=== PATIENT | female | born 1965 | race Caucasian/White ===

== ENCOUNTER → 2020-10-11 13:20 | Outpatient (CLI) | payer OTHER, SELFPAY ==
--- NOTE | ~2020-10-11 | MM_ITS ---
EXAMINATION: MM screening [facility] BI w latisha HISTORY: Screening mammogram TECHNIQUE: Craniocaudal and mediolateral oblique 3-D tomosynthesis images were obtained and synthetic 2-D images were generated. CAD analysis was submitted and interpreted. COMPARISON: 11/25/2017, 08/01/2015 BREAST PARENCHYMAL COMPOSITION: The breasts are almost entirely fatty. FINDINGS: There is no evidence of suspicious mass, calcification, or architectural distortion to sugg est malignancy in either breast. There has been no suspicious interval change. IMPRESSION: 1. No mammographic evidence of malignancy. 2. Recommend routine screening mammography in one year. BI-RADS Category 1: Negative Reviewed, dictated and finalized at location A.
== END ==
PROVIDERS: PCP Family Medicine; Visit Provider Family Medicine
DX: Z12.31 Encounter for screening mammogram for malignant neoplasm of breast (principal)
CPT/HCPCS: 77063; 77067

== ENCOUNTER 2020-10-18 15:53 | Outpatient (CLI) | payer OTHER, SELFPAY | END 2020-10-18 15:54 | disposition home or self-care (01) | LOC: ANHCOVIDVC 15:54 | PROVIDERS: PCP Family Medicine | DX: Z23 Encounter for immunization (principal) | CPT/HCPCS: 0001A; 91300 ==

== ENCOUNTER 2020-11-08 15:59 | Outpatient (CLI) | payer OTHER, SELFPAY | END 2020-11-08 16:00 | PROVIDERS: PCP Family Medicine | DX: Z23 Encounter for immunization (principal) | CPT/HCPCS: 0002A; 91300 ==

== ENCOUNTER 2022-11-05 07:05 | Outpatient (CLI) | payer OTHER, SELFPAY ==
[2022-11-05 07:49] LABS: Alanine Aminotransferase 26 U/L (6-35); Albumin Level 4.7 g/dL (3.5-5.1); Alkaline Phosphatase 90 U/L (38-126); Anion Gap 4 mmol/L (8-16); Aspartate Amino Transferase 25 U/L (14-36); Bilirubin,Total 0.7 mg/dL (0.2-1.3); Blood Urea Nitrogen 22 mg/dL (7-17); Calcium 9.2 mg/dL (8.4-10.2); Carbon Dioxide 32 mmol/L (22-30); Chloride 104 mmol/L (98-107); Cholesterol 147 mg/dL (0-200); Estimated Glomerular Filt Rate > 60; Glucose 142 mg/dL (65-110); HDL Direct 62 mg/dL; Potassium 4.4 mmol/L (3.4-5.0); Sodium 140 mmol/L (137-145); Triglycerides 106 mg/dL (<150)
[2022-11-05 07:54] LABS: Creatinine Urine 84.3 mg/dL
[2022-11-05 07:59] LABS: MALB Creatinine Ratio 7.7 mg/g (0-30); Microalbumin Urine Random 6.5 mg/L (0-16.7)
[2022-11-05 08:03] LABS: LDL Cholesterol Direct 70 mg/dL
== END 2022-11-05 07:06 | disposition home or self-care (01) ==
PROVIDERS: PCP Family Medicine; Referring Provider Podiatrist Foot & Ankle Surgery; Visit Provider Family Medicine
DX: B35.1 Tinea unguium (principal); I10 Essential (primary) hypertension; E11.9 Type 2 diabetes mellitus without complications; E78.2 Mixed hyperlipidemia
CPT/HCPCS: 36415; 80053; 80061; 82043; 83036

== ENCOUNTER → 2022-12-12 13:17 | Outpatient (CLI) | payer OTHER, SELFPAY ==
--- NOTE | ~2022-12-12 | MM_ITS ---
EXAMINATION: MM screening [facility] BI w latisha HISTORY: Screening mammogram TECHNIQUE: Craniocaudal and mediolateral oblique 3-D tomosynthesis images were obtained and synthetic 2-D images were generated. CAD analysis was submitted and interpreted. COMPARISON: 10/11/2020, 11/25/2017, 08/01/2015 bilateral screening mammogram examinations BREAST PARENCHYMAL COMPOSITION: The breasts are almost entirely fatty. FINDINGS: There is no evidence of suspicious mass, calcification, or architectural distortion to sugg est malignancy in either breast. There has been no suspicious interval change. IMPRESSION: 1. No mammographic evidence of malignancy. 2. Recommend routine screening mammography in one year. BI-RADS Category 1: Negative Reviewed, dictated and finalized at location A.
== END ==
PROVIDERS: PCP Family Medicine; Visit Provider Family Medicine
DX: Z12.31 Encounter for screening mammogram for malignant neoplasm of breast (principal)
CPT/HCPCS: 77063; 77067

== ENCOUNTER 2023-01-22 00:11 | Day surgery (SDC) | payer OTHER, SELFPAY ==
[2023-01-09 13:21] VITALS: BMI 32.6
--- NOTE | 2023-01-21 16:35 | PM.HPGS ---
History of Present Illness History of Present Illness Consent: Risks, benefits, and alternatives have been discussed and questions answered. Patient agrees to proceed with procedure. Chief complaint: neoplasm screening Narrative: Lizbeth Valdovinos is a 57 year old female who is here for colon cancer screening years ago she had removal of a tubular adenoma. Review of Systems Review of Systems: All systems reviewed & are unremarkable except as noted in HPI and below PMFSH Past Medical History Medical History Abnormal perimenopausal bleeding Benign reactive hypertension Colonic polyp Diabetes mellitus Eczema of right upper extremity Essential (primary) hypertension Mixed hyperlipidemia Mixed hyperlipidemia Tubular adenoma of colon Type 2 diabetes mellitus with hyperglycemia Type 2 diabetes mellitus with hyperglycemia Type 2 diabetes mellitus without complications Family History Family History Mother Cerebrovascular accident Family history of diabetes mellitus in first degree relative Family history of coronary artery disease Father Family history of diabetes mellitus in first degree relative, Onset Age: 72 Patient's father is Social History Social History Social History: Smoking packs per day: 1.5 Smoking cigarettes per day: 30.0 Years smoked: 15 Smoking pack-years: 22.50 Smoking status: Former smoker Tobacco type: cigarettes Second hand tobacco smoke exposure: No Smoking end date: 07/14/00 Alcohol intake: never Substance use: never Substance use type: does not use Lack of Transportation: No Lack of Food: Never True Current Housing: I Have Housing Concerned About Future Housing: No Difficulty Paying Gas/Electric Bills: No Difficulty Paying for Meds: No Currently Unemployed: No Education: Decline to Answer Difficulty w/ Childcare or Family Care: No Living arrangements: with family Occupation/Education: occupation Gender identity (if verbalized by the patient): Female Sexual Orientation (if Verbalized by the Patient): Straight or Heterosexual Meds Home Medications and Allergies Home Medications Medication Instructions Recorded Confirmed Type canagliflozin 300 mg tablet 300 mg PO DAILY #90 tabs 08/07/21 01/09/23 Rx (Invokana) amlodipine 5 mg tablet See Rx Instructions .Route 05/20/22 01/09/23 Rx .COMPLEX #90 tabs atorvastatin 20 mg tablet 20 mg PO QHS #90 tabs 08/01/22 01/09/23 Rx metformin 1,000 mg tablet See Rx Instructions .Route 10/31/22 01/09/23 Rx .COMPLEX #180 tabs metoprolol tartrate 25 mg tablet See Rx Instructions .Route 10/31/22 01/09/23 Rx .COMPLEX #180 tabs irbesartan 300 1 tablet PO DAILY #30 tabs 11/05/22 01/09/23 Rx mg-hydrochlorothiazide 12.5 mg tablet levothyroxine 25 mcg tablet See Rx Instructions .Route 12/02/22 01/09/23 Rx .COMPLEX #90 tabs glimepiride 2 mg tablet See Rx Instructions .Route 12/23/22 01/09/23 Rx .COMPLEX #90 tabs Allergies Allergy/AdvReac Type Severity Reaction Status Date / Time empagliflozin Allergy Unknown rash Verified 01/22/23 06:42 Exam Resp: Auscultation: clear to auscultation bilaterally Cardio: Rate: regular rate Rhythm: regular rhythm GI: GI Palp: Yes Soft to palpation and No Tenderness to palpation present (GI) Assessment and Plan Assessment and plan (1) Colon cancer screening: Code(s): Z12.11 - Encounter for screening for malignant neoplasm of colon Status: Acute Assessment and Plan: Colonoscopy with possible biopsy or polypectomy or cautery or injection of substances.
[2023-01-22 06:44] VITALS: BP 148/72; PULSE 74; RESP 18; TEMP 36.2; O2SAT 99
[2023-01-22] MEDS: LACTATED RINGERS 1,000 ML 150 ML IV CONT (06:53)
[2023-01-22 07:40] LABS: Glucose Point of Care 157 mg/dl (65-105)
--- NOTE | 2023-01-22 07:45 | WPDANESEPPF ---
Anes - Initial Pre Proc Eval Procedure: Operation Date: 01/22/23 08:00 Proposed Procedures p Screening Colonoscopy - Evens Enamorado MD Date/Time: 01/22/23 07:45 Surgeon: Evens Enamorado MD Pre Op Diagnosis: neoplasm screening Patient Data Age: 57 Gender: F Height: 1.68 m Weight: 92.2 kg Last Vital Signs Temp 97.2 F L 01/22/23 06:44 Pulse 74 01/22/23 06:44 Resp 18 01/22/23 06:44 BP 148/72 H 01/22/23 06:44 Pulse Ox 99 01/22/23 06:44 O2 Del Method Room Air 01/22/23 06:44 Allergies Allergy/AdvReac Type Severity Reaction Status Date / Time empagliflozin Allergy Unknown rash Verified 01/22/23 06:42 Home Medications Medication Instructions Recorded Confirmed Type canagliflozin 300 mg tablet 300 mg PO DAILY #90 tabs 08/07/21 01/09/23 Rx (Invokana) amlodipine 5 mg tablet See Rx Instructions .Route 05/20/22 01/09/23 Rx .COMPLEX #90 tabs atorvastatin 20 mg tablet 20 mg PO QHS #90 tabs 08/01/22 01/09/23 Rx metformin 1,000 mg tablet See Rx Instructions .Route 10/31/22 01/09/23 Rx .COMPLEX #180 tabs metoprolol tartrate 25 mg tablet See Rx Instructions .Route 10/31/22 01/09/23 Rx .COMPLEX #180 tabs irbesartan 300 1 tablet PO DAILY #30 tabs 11/05/22 01/09/23 Rx mg-hydrochlorothiazide 12.5 mg tablet levothyroxine 25 mcg tablet See Rx Instructions .Route 12/02/22 01/09/23 Rx .COMPLEX #90 tabs glimepiride 2 mg tablet See Rx Instructions .Route 12/23/22 01/09/23 Rx .COMPLEX #90 tabs Laboratory Tests 01/22/23 06:55 POC Capillary Glucose 157 H mg/dl (65-105) Patient hx anesthesia problems: none Family hx anesthesia problems: none Results Review: All pre-operative results and documents have been reviewed as part of the pre-operative evaluation. [facility] Past Medical History Medical History Abnormal perimenopausal bleeding Benign reactive hypertension Colonic polyp Diabetes mellitus Eczema of right upper extremity Essential (primary) hypertension Mixed hyperlipidemia Mixed hyperlipidemia Tubular adenoma of colon Type 2 diabetes mellitus with hyperglycemia Type 2 diabetes mellitus with hyperglycemia Type 2 diabetes mellitus without complications Family History Family History Mother Cerebrovascular accident Family history of diabetes mellitus in first degree relative Family history of coronary artery disease Father Family history of diabetes mellitus in first degree relative, Onset Age: 72 Patient's father is Social History Social History Social History: Smoking packs per day: 1.5 Smoking cigarettes per day: 30.0 Years smoked: 15 Smoking pack-years: 22.50 Smoking status: Former smoker Tobacco type: cigarettes Second hand tobacco smoke exposure: No Smoking end date: 07/14/00 Alcohol intake: never Substance use: never Substance use type: does not use Lack of Transportation: No Lack of Food: Never True Current Housing: I Have Housing Concerned About Future Housing: No Difficulty Paying Gas/Electric Bills: No Difficulty Paying for Meds: No Currently Unemployed: No Education: Decline to Answer Difficulty w/ Childcare or Family Care: No Living arrangements: with family Occupation/Education: occupation Gender identity (if verbalized by the patient): Female Sexual Orientation (if Verbalized by the Patient): Straight or Heterosexual Anes - Eval Final PreProcedure Day of Procedure 01/22/23 07:45 Patient weight: obese Heart: regular rate and rhythm Lungs: clear to auscultation Airway: Mallampati scale class II Neurological: alert and oriented Last oral intake: >/= 8 hours ASA classification: III Emergent: no Anesthetic plan: proceed Anesthesia type and monitoring: general GIVS and standard m
[2023-01-22] MEDS: SIMETHICONE ORAL SUSPENSION 20 MG/0.3 ML 30 ML BOTTLE 0.6 ML IRRIGATION (08:05)
[2023-01-22 08:15] VITALS: BP 120/66; PULSE 74; RESP 16; O2SAT 99
[2023-01-22 08:25] VITALS: BP 123/70; PULSE 69; RESP 16; O2SAT 99
[2023-01-22 08:35] VITALS: BP 140/77; PULSE 65; RESP 16; O2SAT 99
== END 2023-01-22 08:48 | disposition home or self-care (01) ==
PROVIDERS: PCP Family Medicine; Visit Provider Internal Medicine Gastroenterology
PROC: 0DJD8ZZ Inspection of Lower Intestinal Tract, Via Natural or Artificial Opening Endoscopic (ICD-10-PCS; CPT 45378; principal; 2023-01-22 08:00)
DX: Z12.11 Encounter for screening for malignant neoplasm of colon (principal); K51.40 Inflammatory polyps of colon without complications; K63.5 Polyp of colon; I10 Essential (primary) hypertension; E11.69 Type 2 diabetes mellitus with other specified complication; E78.2 Mixed hyperlipidemia; E66.9 Obesity, unspecified; Z68.32 Body mass index [BMI] 32.0-32.9, adult; Z87.891 Personal history of nicotine dependence; Z79.84 Long term (current) use of oral hypoglycemic drugs
CPT/HCPCS: 45385; 82948; 88305; J2704; J7120

== ENCOUNTER 2024-08-12 14:52 | Outpatient (CLI) | payer OTHER, SELFPAY ==
--- NOTE | ~2024-08-12 | MM_ITS ---
EXAMINATION: MM screening [facility] BI w latisha HISTORY: Screening TECHNIQUE: Craniocaudal and mediolateral oblique 3-D tomosynthesis images were obtained and synthetic 2-D images were generated. CAD analysis was submitted and interpreted. COMPARISON: Comparison to multiple prior studies sequentially, with oldest reviewed study dated 08/01. BREAST PARENCHYMAL COMPOSITION: Not Dense. The breasts are almost entirely fatty. FINDINGS: There is no evidence of suspicious mass, calcification, or architectural distortion to sugg est malignancy in either breast. There has been no suspicious interval change. IMPRESSION: 1. No mammographic evidence of malignancy. 2. Recommend routine screening mammography in one year. BI-RADS Category 1: Negative Reviewed, dictated and finalized at location A. CONSULTANT
== END 2024-08-12 14:53 | disposition home or self-care (01) ==
PROVIDERS: PCP Family Medicine; Visit Provider Family Medicine
DX: Z12.31 Encounter for screening mammogram for malignant neoplasm of breast (principal)
CPT/HCPCS: 77063; 77067